=== PATIENT | female | born 2000 | race Hispanic/Latino ===

== ENCOUNTER → 2019-03-24 | Outpatient (REF) | payer OTHER ==
[2019-03-24 18:45] LABS: HEMATOCRIT 40.1 % (36.0-47.0); HEMOGLOBIN 13.2 g/dl (12.0-15.5); MEAN CORPUSCULAR HEMOGLOBIN 30.5 pg (27.0-33.0); MEAN CORPUSCULAR HGB CONC 32.9 g/dl (32.0-36.5); MEAN CORPUSCULAR VOLUME 92.6 fl (80.0-96.0); PLATELET COUNT, AUTOMATED 292 10^3/uL (150-450); RED BLOOD COUNT 4.33 10^6/uL (4.00-5.40); WHITE BLOOD COUNT 7.3 10^3/uL (4.0-10.0)
== END ==
LOC: M LAB REF 17:59
PROVIDERS: ATTEND Nurse Practitioner Women's Health
DX: Z34.82 Encounter for supervision of other normal pregnancy, second trimester (principal)

== ENCOUNTER → 2019-04-21 | Outpatient (REF) | payer OTHER | LOC: M LAB REF 17:13 | PROVIDERS: ATTEND Obstetrics & Gynecology | DX: Z34.01 Encounter for supervision of normal first pregnancy, first trimester (principal) ==

== ENCOUNTER → 2019-06-09 | Outpatient (CLI) | payer OTHER ==
[2019-06-09 14:19] LABS: HEMATOCRIT 33.4 % (36.0-47.0); MEAN CORPUSCULAR HEMOGLOBIN 30.7 pg (27.0-33.0); MEAN CORPUSCULAR HGB CONC 32.9 g/dl (32.0-36.5); MEAN CORPUSCULAR VOLUME 93.3 fl (80.0-96.0); PLATELET COUNT, AUTOMATED 304 10^3/uL (150-450); RED BLOOD COUNT 3.58 10^6/uL (4.00-5.40)
[2019-06-10 07:31] LABS: WHITE BLOOD COUNT 7.8 10^3/uL (4.0-10.0)
== END ==
LOC: M LAB 12:42
PROVIDERS: ATTEND Obstetrics & Gynecology
DX: Z34.02 Encounter for supervision of normal first pregnancy, second trimester (principal)

== ENCOUNTER → 2019-08-14 | Outpatient (REF) | payer OTHER | LOC: M LAB REF 12:06 | PROVIDERS: ATTEND Obstetrics & Gynecology | DX: Z34.03 Encounter for supervision of normal first pregnancy, third trimester (principal) ==

== ENCOUNTER 2019-09-08 19:25 | Inpatient (IN) | payer OTHER ==
[~2019-09-08] VITALS: Ht 167.6 cm; Wt 89.3 kg
[2019-09-08 19:45] VITALS: BP 137/75
[2019-09-08] MEDS ORDERED: PRENTAB9 PO (19:46)
[2019-09-08 19:51] VITALS: BP 129/73
[2019-09-08] MEDS ORDERED: LACTATED RINGER'S 1000 ML IV STA (20:48)
[2019-09-08] MEDS ORDERED: ceFAZolin SOD 2 GM in IV 1 EA IV ONE (21:00)
[2019-09-08] MEDS ORDERED: AZITHROMYCIN INJ 500 MG, VIAL MATE ADAPTER 1 EACH in D5W 250 ML IV ONE (21:00)
[2019-09-08] MEDS ORDERED: BICITRA 30ML SOLN UDC PO ONE (21:00)
--- NOTE | 2019-09-08 21:02 | IPNPDOC ---
Text Note Date of Service The patient was seen on 09/08/19. NOTE Patient is 19yo at 38.6wks. C/o IRREGULAR CONTRACTIONS SINCE YESTERDAY. No loss of fluid or bleeding. Good movement. PE: VS WNL GEN NAD, Comfortable SVE: FT/thick FHT: Category 1, 130, reactive, no decels. contractions irregular [id number]. A/P: Fetus reassuring. Patient not in labor and no rupture of membranes. Patient given labor precautions, rupture of membranes precautions and kick counts. VS,Fishbone, I+O VS, Fishbone, I+O Vital Signs Date Time Temp Pulse Resp B/P (MAP) Pulse Ox O2 Delivery O2 Flow Rate FiO2 09/08/19 19:51 88 18 129/73 (91) Room Air 09/08/19 19:50 98.9 Ashley Lemos MD Sep 08, 2019 21:02
[2019-09-08 21:32] VITALS: BP 132/79
[2019-09-08 21:48] LABS: HEMOGLOBIN 11.3 g/dl (12.0-15.5); MEAN CORPUSCULAR HEMOGLOBIN 28.3 pg (27.0-33.0); MEAN CORPUSCULAR HGB CONC 32.3 g/dl (32.0-36.5); MEAN CORPUSCULAR VOLUME 87.7 fl (80.0-96.0); PLATELET COUNT, AUTOMATED 256 10^3/uL (150-450); RED BLOOD COUNT 3.99 10^6/uL (4.00-5.40); WHITE BLOOD COUNT 8.5 10^3/uL (4.0-10.0)
[2019-09-08] MEDS: LR 1,000 ML IV SCH (22:10)
[2019-09-08 22:13] VITALS: BP 108/60
[2019-09-08 23:20] VITALS: BP 124/67
[2019-09-09] VITALS (12 sets, daily range): BP systolic 108–126; BP diastolic 56–76
[2019-09-09] MEDS ORDERED: BUTORPHANOL 2 MG/ML INJ (J0595) IV ONE (01:00)
[2019-09-09] MEDS ORDERED: PROMETHAZINE INJ 25 MG/ML VIAL (J2550) IV ONE (01:00)
[2019-09-09] MEDS: LR 1,000 ML IV SCH (03:53)
[2019-09-09] MEDS ORDERED: MORPHINE PRES-FREE INJ 10 MG/10 ML VIAL (J2274) As Ordered ONE (05:28)
[2019-09-09] MEDS ORDERED: PHENYLephrine HCL 500 MCG/5 ML (100MCG/ML) SYRINGE (J2370) As Ordered ONE (05:29)
[2019-09-09] MEDS ORDERED: ePHEDrine SULFATE 25 MG/5 ML(5MG/ML) SYRINGE As Ordered ONE (05:29)
[2019-09-09] MEDS ORDERED: OXYTOCIN DRIP 30 UNITS in IV 1 EA IV SCH (05:31)
[2019-09-09] MEDS ORDERED: RHOGAM 300 MCG (1500 IU) INJ (J2790) IM SCH (05:45)
[2019-09-09] MEDS ORDERED: MOM 30ML SUSPENSION UDC PO PRN (05:45)
[2019-09-09] MEDS ORDERED: MEASLES,MUMPS,RUBELLA VACCINE INJ (MMR-II) (90707) SC SCH (05:45)
[2019-09-09] MEDS ORDERED: PERCOCET 5MG/325MG TAB PO PRN (05:45)
[2019-09-09] MEDS ORDERED: ONDANSETRON 4 MG TAB PO PRN (05:45)
[2019-09-09] MEDS ORDERED: OXYTOCIN 30 UNITS IN 0.9% NaCl 500ML IV BAG (J2590) As Ordered ONE ×3 (05:49→07:38)
[2019-09-09] MEDS ORDERED: ONDANSETRON 4MG/2ML VIAL As Ordered ONE (05:54)
[2019-09-09] MEDS ORDERED: KETOROLAC 60 MG/2 ML VIAL As Ordered ONE (05:54)
[2019-09-09 06:00] LABS: CORD GAS ABE V -2.7; CORD GAS HCO3 V 22.5 MEQ/L; CORD GAS O2 SAT V 76.4 %; CORD GAS PCO2 V 40.7 mmHg; CORD GAS PH V 7.361 UNITS; CORD GAS PO2 V 33.8 mmHg; CORD GAS SBC V 21.8 MEQ/L; CORD GAS TCO2 V 23.8 MEQ/L
[2019-09-09] MEDS: KETOROLAC 30 MG/ML 1ML VIAL IV SCH ×3 (06:00→17:48)
[2019-09-09 06:02] LABS: CORD GAS ABE A -2.6; CORD GAS HCO3 A 25.2 MEQ/L; CORD GAS O2 SAT A 44.8 %; CORD GAS PCO2 A 57.2 mmHg; CORD GAS PH A 7.262 UNITS; CORD GAS PO2 A 22.2 mmHg; CORD GAS SBC A 21.2 MEQ/L
[2019-09-09] MEDS ORDERED: oxyCODONE 5MG TAB PO PRN (06:45)
[2019-09-09] MEDS ORDERED: fentaNYL 100 MCG/2 ML INJECTION (J3010) IV PRN (06:45)
[2019-09-09] MEDS ORDERED: ONDANSETRON 4MG/2ML VIAL IV PRN ×2 (06:45→08:00)
[2019-09-09] MEDS ORDERED: NALOXONE INJ 0.4MG/1ML VIAL (J2310 PER 1MG) IV PRN ×2 (08:00)
[2019-09-09] MEDS ORDERED: diphenhydrAMINE 50MG/ML VIAL (J1200) IV PRN (08:00)
[2019-09-09] MEDS ORDERED: METOCLOPRAMIDE INJ 10MG/2ML VIAL (J2765 PER 1) IV PRN (08:00)
[2019-09-09] MEDS ORDERED: NALBUPHINE HCL 10 MG/ML AMP (J2300) IV PRN (08:00)
[2019-09-09] MEDS: DOCUSATE SODIUM 100 MG CAP PO SCH ×2 (09:00→20:48)
[2019-09-09] MEDS: PRENATAL VITAMINS CHEWABLE TABLET PO SCH (09:35)
--- NOTE | 2019-09-09 13:34 | HPE ---
DATE OF ADMISSION: 09/08/2019 Eleonora is a 19-year-old female, 1, para 0, with an estimated date of confinement (EDC) of 09/11/2019, estimated gestational age (EGA) 39-3/7 weeks gestation, who presented to labor and delivery with complaints of contraction and an rupture of membrane. Upon evaluation, she was found to be grossly ruptured. 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 She was counseled in the office extensively and she was originally planned on having a section. At this point, once again, patiently re-counseled given the option of labor versus proceeding with the section. Again, the patient opt to proceed with a primary section. Her record reviewed, which was essentially unremarkable. She initiated care at approximately 11 weeks in the office. LABS: Blood type is A+. Rubella immune. Hepatitis negative. HIV negative. GC, chlamydia negative. 1-hour sugar testing was within normal limits. Her GBS is negative. PAST MEDICAL HISTORY: Denies. PAST SURGICAL HISTORY: Denies. SOCIAL HISTORY: She denies any alcohol, drugs, or cigarette smoking. REVIEW OF SYSTEMS: Unremarkable. MEDICATIONS: - vitamin ALLERGIES: NO KNOWN DRUG ALLERGIES. PHYSICAL EXAMINATION: Normal-appearing female in no acute distress. Abdomen: Soft, nontender, nondistended. Extremities: No clubbing, cyanosis, or edema. Vaginal Exam: Gross rupture of membrane. Nitrazine positive. Cervix fingertip, 70% effaced. Fetus at -3 to -4 station. Tracing reviewed. Category 1 tracing with irregular contractions every 4-7 minutes. ASSESSMENT: 1. Term intrauterine at 39-3/7 weeks gestation. 2. 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 3. Gross rupture of membranes. 4. The patient desires delivery via primary section. PLAN: Admit to labor and delivery. Routine labs sent. Both patient and partner counseled extensively. The risk and benefit discussed and they still wants to proceed with the delivery via section. Informed consent obtained. Anesthesia notified. Awaiting operating room (OR) for delivery via section.
[2019-09-10] MEDS: IBUPROFEN 800 MG TAB PO SCH ×3 (01:55→17:34)
[2019-09-10 02:00] VITALS: BP 122/68
[2019-09-10 06:00] VITALS: BP 120/73
[2019-09-10 07:18] LABS: HEMATOCRIT 31.6 % (36.0-47.0); HEMOGLOBIN 10.6 g/dl (12.0-15.5); MEAN CORPUSCULAR HEMOGLOBIN 29.4 pg (27.0-33.0); MEAN CORPUSCULAR HGB CONC 33.5 g/dl (32.0-36.5); MEAN CORPUSCULAR VOLUME 87.8 fl (80.0-96.0); PLATELET COUNT, AUTOMATED 240 10^3/uL (150-450); WHITE BLOOD COUNT 8.4 10^3/uL (4.0-10.0)
[2019-09-10] MEDS: DOCUSATE SODIUM 100 MG CAP PO SCH ×2 (08:38→21:10)
[2019-09-10] MEDS: PRENATAL VITAMINS CHEWABLE TABLET PO SCH (08:38)
[2019-09-10] MEDS ORDERED: INFLUENZA QUADRIVALENT PF VACCINE 0.5ML SYRINGE (90686) IM ONE (09:00)
[2019-09-10] MEDS ORDERED: BOOSTRIX/ADACEL VACCINE (DIPHTH/PERTUSS/ACELL/TETANUS) 0.5ML SYR IM ONE (09:00)
[2019-09-10 09:59] VITALS: BP 116/60
[2019-09-10 18:00] VITALS: BP 126/70
[2019-09-10 22:00] VITALS: BP 122/70
[2019-09-11 02:00] VITALS: BP 120/69
[2019-09-11] MEDS: IBUPROFEN 800 MG TAB PO SCH ×2 (02:48→09:19)
[2019-09-11 06:00] VITALS: BP 113/64
[2019-09-11] MEDS ORDERED: PERCOCET PO (07:11)
[2019-09-11] MEDS ORDERED: IBUP80TA PO (07:11)
--- NOTE | 2019-09-11 07:19 | OBDS ---
[facility] Obstetrical Discharge Sum. Obstetrical Discharge Summary Straightening Roll Operator/Provider: Jorge Aldana DO Date: Sep 11, 2019 : 1 Term: 1 Pre-term: 0 Abortions: 0 Livin VDRL: Non-Reactive Rh: Positive Rubella: Immune Sex: Female Infant Weight: pounds (8) Anesthesia: Regional Anesthesia A/P, Post Course List any complications Admission diagnosis: .Term with SROM; Cephalopelvic dispoportion for elective primary c/s Discharge diagnosis: Same; Nuchal cord X1 Condition at Discharge: [stable] Discharge Instructions: [Nothing vagina for 6 weeks. See instructions] Activity: [As tolerated ] Diet: [regular] Medications: [See list] Follow-up: [2 weeks] Other: Jorge Aldana DO Sep 11, 2019 07:19
[2019-09-11] MEDS: PRENATAL VITAMINS CHEWABLE TABLET PO SCH (07:24)
[2019-09-11] MEDS: DOCUSATE SODIUM 100 MG CAP PO SCH (07:24)
--- NOTE | 2019-09-14 12:41 | RO ---
DATE OF PROCEDURE: 09/08/2019 Eleonora is a 19-year-old female 1, para 0 who was admitted at 39-4/7 weeks gestation after presenting with spontaneous rupture of membranes. She has cephalopelvic disproportion with what appeared to be platypelloid pelvis. After counseling the patient was already scheduled for primary section. We decided to proceed with the primary section. PREOPERATIVE DIAGNOSES: 1. Intrauterine at 39-4/7 weeks gestation with spontaneous rupture of membrane. 2. Cephalopelvic disproportion with a primary section. POSTOPERATIVE DIAGNOSES 1. Intrauterine at 39-4/7 weeks gestation with spontaneous rupture of membrane. 2. Cephalopelvic disproportion with a primary section. 3. Nuchal cord times one. 4. Meconium-stained fluid. PROCEDURE: Primary low transverse section. ANESTHESIA: Spinal. SURGEON: Dr. Jorge Aldana. ELECTRON BEAM OPERATOR: Elaine Thompson. COMPLICATION: None. ESTIMATED BLOOD LOSS: 500 mL. FINDINGS: Live in occiput transverse position. 9 and 9, weight 8 pounds 13 ounces. Placenta delivered manually intact. Three-vessel cord. DESCRIPTION OF PROCEDURE: After obtaining informed consent, the patient was taken to the operating room where spinal anesthetic was found to be adequate. She was then draped and prepped in the usual sterile fashion in the supine position. At this point with the help with Carissa Thompson, a Pfannenstiel incision was made. This was carried down to the fascia. Fascia was incised in midline fashion and carried through laterally. Superior aspect of the fascia then grasped with Misa clamps, tented off and dissected off the rectus muscles sharply. The inferior aspect was dissected off in similar fashion. Rectus muscles in the midline fashion. Perineum identified. Perineal cavity entered bluntly. Superior and inferior dissection of the peritoneum was then done with good visualization of the bladder. At this point a Mobius skin retractor was placed. A low-transverse uterine incision was made. was delivered in atraumatic fashion. The nuchal cord was reduced. Cord doubly clamped and cut and was handed over to the awaiting warmer. Cord blood and cord gas were sent. Placenta removed manually. Uterus cleared of all clot and debris and the uterine incision was then repaired in two separate layers of 0 Vicryl sutures. Pelvis copiously irrigated with normal saline and suctioned out. Attention turned to the peritoneum which was closed in a running fashion using #2-0 Vicryl. Fascia closed in two separate segment of 0 Vicryl sutures and the skin was reapproximated in subcuticular fashion using #3-0 Vicryl on a Andrea. Steri-Strips placed. The patient tolerated procedure well. She was then transferred to recovery room in stable condition.
== END 2019-09-11 12:40 | disposition home or self-care (01) | DRG 773 ==
LOC: M LDO 19:25 → M LDI 20:52 → M OBS 09-09 08:10
PROVIDERS: ADMIT Obstetrics & Gynecology; ATTEND Obstetrics & Gynecology
PROC: 10D00Z1 Extraction of Products of Conception, Low, Open Approach (ICD-10-PCS; principal; 2019-09-08)
DX: O33.0 Maternal care for disproportion due to deformity of maternal pelvic bones (principal); Z3A.39 39 weeks gestation of pregnancy; O75.82 Onset (spontaneous) of labor after 37 completed weeks of gestation but before 39 completed weeks gestation, with delivery by (planned) cesarean section; O69.81X0 Labor and delivery complicated by cord around neck, without compression, not applicable or unspecified; O77.0 Labor and delivery complicated by meconium in amniotic fluid; O32.2XX0 Maternal care for transverse and oblique lie, not applicable or unspecified; Z37.0 Single live birth

== ENCOUNTER → 2019-09-08 | Outpatient (CLI) | payer OTHER ==
[~2019-09-08] MED LIST: PRENTAB9 PO
--- NOTE | 2019-09-09 04:20 | REP ---
Clinical: well-being Comparison: 04/28/2019 . Findings: Examination demonstrates a single live intrauterine in cephalic presentation. motion is identified by technologist. Placenta is noted fundal and grade zero without evidence for placenta previa or abruption. Amniotic fluid volume is normal. Cervix measures 3.2 cm in length and appears closed. No evidence for nuchal cord. Gestational age by LMP 39 weeks 4 days with WALTER 09/11/2019 . Gestational age by current measurements 38 weeks 3 days with WALTER 09/19/2019 . FHR equals 140 beats per minute. Amniotic fluid index: 16.9 cm Estimated weight 3608 grams ( 53rd percentile). Impression: Single live advanced gestation in cephalic presentation demonstrating appropriate estimated weight and growth. No gross abnormalities are identified.
== END ==
LOC: M WHC 07:28
PROVIDERS: ATTEND Advanced Practice Midwife
DX: Z36.89 Encounter for other specified antenatal screening (principal); Z3A.38 38 weeks gestation of pregnancy

== ENCOUNTER → 2019-10-27 | Outpatient (CLI) | payer OTHER ==
[~2019-10-27] MED LIST changes: +IBUP80TA PO; +PERCOCET PO
--- NOTE | 2019-10-27 12:57 | REP ---
Clinical: abdominal pain. Technique: Two supine views of the abdomen and pelvis. Findings: Supine views of the abdomen and pelvis demonstrate nonspecific bowel gas pattern without obstruction or perforation. No organomegaly. No abnormal calcifications. Skeletal structures normal for age. Impression: Nonspecific bowel gas pattern. Electronically Signed by Caleb Foster MD 10/27/2019 12:48 P
== END ==
LOC: M LRY 12:17
PROVIDERS: ATTEND Physician Assistant
DX: R10.13 Epigastric pain (principal)
CPT/HCPCS: 74018; G0463